=== PATIENT | male | born 1940 | race Caucasian/White ===

== ENCOUNTER 2022-04-06 10:45 | Outpatient (CLI) | payer OTHER | END 2022-04-06 11:11 | disposition home or self-care (01) | LOC: TOM 10:45 | PROVIDERS: ATTEND Internal Medicine Gastroenterology | DX: K56.50 Intestinal adhesions [bands], unspecified as to partial versus complete obstruction (principal); R10.30 Lower abdominal pain, unspecified; Z86.010 Personal history of colon polyps ==

== ENCOUNTER 2023-10-31 07:36 | Day surgery (SDC) | payer OTHER ==
[2023-10-31] MEDS ORDERED: DIPHENHYDRAMINE HCL 50 MG/ML VIAL 1ML IV ONE (11:00)
[2023-10-31] MEDS ORDERED: MIDAZOLAM HCL 2 MG/2 ML VIAL IV ONE (11:00)
[2023-10-31] MEDS ORDERED: ONDANSETRON HCL 2 MG/ML VIAL IV ONE (11:00)
== END 2023-10-31 12:25 | disposition home or self-care (01) ==
LOC: AMB-ENDOS 07:36
PROVIDERS: ATTEND Colon & Rectal Surgery
DX: C20 Malignant neoplasm of rectum (principal); Z88.0 Allergy status to penicillin; Z88.6 Allergy status to analgesic agent; Z20.822 Contact with and (suspected) exposure to COVID-19